=== PATIENT | female | born 1990 | race Caucasian/White ===

== ENCOUNTER 2016-07-25 14:26 | Emergency (ER) | payer OTHER ==
[~2016-07-25 14:26] MED LIST: COLACE 100MG C100 MG PO
== END 2016-07-25 16:04 | disposition home or self-care (01) ==
LOC: ER1 14:26
DX: S83.91XA Sprain of unspecified site of right knee, initial encounter (principal); F17.210 Nicotine dependence, cigarettes, uncomplicated; W18.30XA Fall on same level, unspecified, initial encounter
CPT/HCPCS: 73564; 96372; 99283; J1885

== ENCOUNTER → 2020-08-09 | Outpatient (CLI) | payer OTHER | LOC: KOH-I 12:07 | DX: M25.561 Pain in right knee (principal) | CPT/HCPCS: 73564 ==